=== PATIENT | male | born 1975 | race Caucasian/White ===

== ENCOUNTER 2016-12-08 09:43 | Emergency (ER) | payer BC, OTHER ==
[~2016-12-08] VITALS: Ht 172.7 cm; Wt 72.6 kg
== END 2016-12-08 10:21 | disposition home or self-care (01) ==
LOC: ER 09:43
DX: S61.511A Laceration without foreign body of right wrist, initial encounter (principal); X58.XXXA Exposure to other specified factors, initial encounter; Y93.89 Activity, other specified; Y99.8 Other external cause status; Y92.89 Other specified places as the place of occurrence of the external cause
CPT/HCPCS: A4663

== ENCOUNTER 2016-12-10 09:11 | Emergency (ER) | payer BC ==
[~2016-12-10] VITALS: Ht 172.7 cm; Wt 73.5 kg
--- NOTE | 2016-12-10 10:57 | NUR ---
Patient discharged to home in stable conditon. Written and verbal after care instructions given. Patient verbalizes understanding of instructions.
== END 2016-12-10 10:59 | disposition home or self-care (01) ==
LOC: ER 09:11
DX: S61.511D Laceration without foreign body of right wrist, subsequent encounter (principal); L53.9 Erythematous condition, unspecified; X58.XXXD Exposure to other specified factors, subsequent encounter; Y99.8 Other external cause status; Y92.89 Other specified places as the place of occurrence of the external cause
CPT/HCPCS: 73100; A4663